=== PATIENT | female | born 1940 | race African-American/Black ===

== ENCOUNTER 2017-09-24 12:00 | Inpatient (IN) | payer MEDICARE ==
[2017-09-24] MEDS ORDERED: Magnesium Sulf 4 GM/100 ML IV* 4,000 MG/100 ML BAG IVPB ONE (18:21)
[2017-09-24] MEDS: NS 0.9% 1000 ML* 1,000 ML IV SCH (19:17)
[2017-09-24] MEDS: Enoxaparin(*) 40 MG/0.4 ML SYR SUBCUT SCH (19:20)
[2017-09-24 20:00] LABS: EGFR Non-African American 125.7 (>60)
[2017-09-24] MEDS: Ondansetron INJ* 2 MG/ML VIAL IV PRN (23:07)
[2017-09-25 07:06] LABS: EGFR Non-African American 132.1 (>60)
[2017-09-25] MEDS ORDERED: Lidocaine 2.5%/Prilocain 2.5%* 5 GM TUBE TOPICAL ONE (08:30)
[2017-09-25] MEDS ORDERED: Omeprazole CAP* 20 MG PO SCH (09:00)
[2017-09-25] MEDS: Potassium Chloride IV* 20 MEQ in NS 0.9% 100 ML* 100 ML IVPB SCH ×3 (10:42→16:15)
[2017-09-25 11:05] LABS: Hematocrit 27 % (35-47); Hemoglobin 9.2 g/dl (12.0-16.0); Mean Corpuscular HGB Conc 34 g/dl (31-36); Mean Corpuscular Hemoglobin 30 pg (27-31); Mean Corpuscular Volume 89 fL (80-97); Mean Platelet Volume 7 um3 (7.4-10.4); Platelet Count 220 10^3/ul (150-450); Red Blood Count 3.06 10^6/ul (4.0-5.4); Red Cell Distribution Width 17 % (10.5-15)
[2017-09-25 11:42] LABS: Monocytes % 28 % (0-13)
[2017-09-25] MEDS: NS 0.9% 1000 ML* 1,000 ML IV SCH (13:39)
[2017-09-25] MEDS: Ondansetron INJ* 2 MG/ML VIAL IV PRN (13:39)
[2017-09-25] MEDS ORDERED: PROCHLORPERAZINE INJ 5 MG/ML 2 ML VIAL IM PRN (19:54)
[2017-09-25] MEDS ORDERED: Pantoprazole IV* 80 MG in NS 0.9% 250 ML* 250 ML IVPB SCH (20:00)
[2017-09-25] MEDS ORDERED: KCL 20 MEQ/100 ML IVPREMIX* 20 MEQ/100 ML BAG IV SCH (20:00)
[2017-09-25] MEDS: Enoxaparin(*) 40 MG/0.4 ML SYR SUBCUT SCH (20:01)
[2017-09-25] MEDS ORDERED: PROCHLORPERAZINE INJ 5 MG/ML 2 ML VIAL IV PRN (20:20)
[2017-09-25 21:30] LABS: Hematocrit 26 % (35-47); Hemoglobin 8.9 g/dl (12.0-16.0)
[2017-09-25] MEDS ORDERED: Potassium Chloride IV* 60 MEQ in NS 0.9% 500 ML* 500 ML IVPB ONE (22:00)
[2017-09-25] MEDS: Latanoprost 0.005%* 2.5 ml BTL BOTH EYES SCH (22:50)
[2017-09-26] MEDS ORDERED: Morphine INJ* 2 MG/ML 1 ML CARPUJECT IV PRN
[2017-09-26] MEDS: Ondansetron INJ* 2 MG/ML VIAL IV PRN (00:35)
[2017-09-26] MEDS: NS 0.9% 1000 ML* 1,000 ML IV SCH (04:55)
[2017-09-26 05:55] LABS: Hematocrit 26 % (35-47); Hemoglobin 8.6 g/dl (12.0-16.0); Mean Corpuscular HGB Conc 33 g/dl (31-36); Mean Corpuscular Hemoglobin 30 pg (27-31); Mean Corpuscular Volume 90 fL (80-97); Mean Platelet Volume 7 um3 (7.4-10.4); Platelet Count 224 10^3/ul (150-450); Red Blood Count 2.86 10^6/ul (4.0-5.4); Red Cell Distribution Width 18 % (10.5-15); White Blood Count 2.2 10^3/ul (3.5-10.8)
[2017-09-26 06:23] LABS: ABS Basophils 0 10^3/ul (0-0.2); ABS Eosinophils 0 10^3/ul (0-0.6); ABS Lymphocytes 0.8 10^3/ul (1.0-4.8); ABS Monocytes 0.8 10^3/ul (0-0.8); ABS Neutrophils 0.5 10^3/ul (1.5-7.7); ABS Nucleated RBC 0 10^3/ul; Eosinophil % 0.2 % (0-6); Lymphocyte % 37.5 % (25-47); Nucleated Red Blood Cells % 1.4
[2017-09-26] MEDS: Pantoprazole IV* 80 MG in NS 0.9% 250 ML* 250 ML IVPB SCH (10:19)
--- NOTE | 2017-09-26 10:36 | PN ---
Progress Note - Progress Note Date of Service: 09/26/17 SOAP: Subjective: [] She is better this am, ate some breakfast. She had nausea and vomited all night. No fevers. Nurse said coffee ground vomit, she thinks it was grapefruit juice. She has epigastric pain, stable. Presented with nausea and vomiting. Has had for some time off and on. Before admission several days of vomiting and that is unusual. Has had consistent vomiting through admission. Not feeling much different now then before admission. Objective: Vital Signs Temp Pulse Resp BP Pulse Ox 98 F 72 16 118/58 99 09/26/17 09:40 09/26/17 09:40 09/26/17 09:40 09/26/17 09:40 09/26/17 09:40 HENNT - thin, no oral lesions, hyrated, conjunctiva pale CTA RRR S1S2 80s +BS, she has pain to palpation, no rebound, no masses Ext no C/C/E Neuro - AAOx3, conversational Laboratory Results - last 24 hr 09/25/17 09/25/17 09/25/17 10:41 16:35 21:10 WBC 2.0 L RBC 3.06 L Hgb 9.2 L 8.9 L Hct 27 L 26 L MCV 89 MCH 30 MCHC 34 RDW 17 H Plt Count 220 MPV 7 L Neut % (Auto) Not Reportable Lymph % (Auto) Not Reportable [place] % (Auto) Not Reportable Eos % (Auto) Not Reportable Baso % (Auto) Not Reportable Absolute Neuts (auto) Not Reportable Absolute Lymphs (auto) Not Reportable Absolute Monos (auto) Not Reportable Absolute Eos (auto) Not Reportable Absolute Basos (auto) Not Reportable Absolute Nucleated RBC Not Reportable Immature Gran % 3 Neutrophils % 2 L Band Neutrophils % 3 Lymphocytes % 66 H Monocytes % 28 H Eosinophils % 1 Basophils % 0 Nucleated RBC % Not Reportable Abs Neuts (Manual) 0 L Abs Monocytes (Manual) 0.6 Absolute Eos (Manual) 0 Abs Basophils (Manual) 0 Nucleated RBCs/100 WBC 0 Normal RBC Morphology Normal Hem Pathologist Commnt Sodium Potassium 2.9 L Chloride Carbon Dioxide Anion Gap BUN Creatinine Est GFR ( Amer) Est GFR (Non-Af Amer) BUN/Creatinine Ratio Glucose Calcium Magnesium 09/26/17 09/26/17 05:45 05:45 WBC 2.2 L RBC 2.86 L Hgb 8.6 L Hct 26 L MCV 90 MCH 30 MCHC 33 RDW 18 H Plt Count 224 MPV 7 L Neut % (Auto) 23.8 L Lymph % (Auto) 37.5 Edwards % (Auto) 38.2 H Eos % (Auto) 0.2 Baso % (Auto) 0.3 Absolute Neuts (auto) 0.5 L Absolute Lymphs (auto) 0.8 L Absolute Monos (auto) 0.8 Absolute Eos (auto) 0 Absolute Basos (auto) 0 Absolute Nucleated RBC 0 Immature Gran % Neutrophils % Band Neutrophils % Lymphocytes % Monocytes % Eosinophils % Basophils % Nucleated RBC % 1.4 Abs Neuts (Manual) Abs Monocytes (Manual) Absolute Eos (Manual) Abs Basophils (Manual) Nucleated RBCs/100 WBC Normal RBC Morphology Hem Pathologist Commnt Sodium 137 Potassium 3.5 Chloride 110 Carbon Dioxide 23 Anion Gap 4 BUN 6 Creatinine 0.44 L Est GFR ( Amer) 178.8 Est GFR (Non-Af Amer) 139.0 BUN/Creatinine Ratio 13.6 Glucose 70 Calcium 7.7 L Magnesium 1.7 L Assessment: []77 year old with metastatic esophageal cancer who has been responding to chemotherapy with FOLFOX-Herceptin. Presentation with refractory nausea, diarrhea, low electrolytes, neuropenia and now possible GIB. The differential of upper GIB is tear for recurrent vomiting, bleeding from tumor, ulcer, gastritis. Plan: []1. Possible GIB. Will continue IV protonix and consult GI for possible EGD 2. Anemia. Decreased Hgb and question of continued bleeding. Will Tx 1U PRBC and check iron, B12 3. FEN. Replete Mg today IV, add potassium to IVF 4. Nausea/Vomiting. Etiology unclear, will continue Zofran and Compazine. Add IV Ativan for breakthrough. 4. Esophageal cancer. May need alternative regimen in future.
[2017-09-26] MEDS ORDERED: LORazepam INJ* 2 MG/ML 1 ML VIAL IV PUSH PRN (10:42)
[2017-09-26] MEDS ORDERED: Magnesium Sulfate IV* 3 GM in NS 0.9% 100 ML* 100 ML IVPB ONE (10:44)
[2017-09-26 14:44] LABS: Urine Appearance Clear; Urine Blood Negative (Negative); Urine Color Yellow; Urine Ketones 1+ (Negative); Urine Protein 1+(30 mg/dL) (Negative); Urine Specific Gravity 1.015 (1.010-1.030); Urine Urobilinogen Negative (Negative)
[2017-09-26] MEDS ORDERED: NS 0.9% 100 ML* 100 ML ONE (17:02)
[2017-09-26] MEDS: Latanoprost 0.005%* 2.5 ml BTL BOTH EYES SCH (19:25)
--- NOTE | 2017-09-26 20:10 | CONS ---
CC: Gurjit Sol MD * GASTROENTEROLOGY CONSULTATION NOTE: DATE OF CONSULT: 09/26/17 REFERRING PHYSICIAN: Gurjit Sol MD HISTORY OF PRESENT ILLNESS: Thank you for asking me to see Mrs. Allen. 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 She is noted to have pulmonary nodules bilaterally. The patient has been undergoing chemotherapy infusion with 5-FU and FOLFOX. She is admitted last night due to refractory nausea and vomiting as well as neutropenia and fever. There is report that the patient was vomiting coffee ground; however, she clearly states this was not coffee ground. She had had grape juice and some sort of apple pie prior to the onset of her vomiting. Her hematocrit has been stable with admission hematocrit of 27, today 26. Her white blood count is 2.2 with 23.8% neutrophils. Platelet count is 224. The patient did have breakfast this morning and has no nausea or vomiting. She has been getting, however, epigastric pain and more episodes of vomiting, which she feels likely is due to the chemotherapy. The epigastric pain is somewhat new. She has been taking [place] at home to relieve the nausea. PAST MEDICAL HISTORY: Significant for foot surgery, carpal tunnel syndrome, GERD, and Suero's. CURRENT MEDICATIONS: 1. Morphine. 2. Zofran. 3. Pantoprazole drip. 4. Compazine. I would continue the pantoprazole pending endoscopy. ALLERGIES: To CODEINE, PENICILLIN, AMITRIPTYLINE, and BENADRYL. FAMILY HISTORY: There is no family history of colon or esophageal cancer. SOCIAL HISTORY: The patient lives alone. She is a former smoker quitting many years ago. No alcohol abuse. REVIEW OF SYSTEMS: A 10-point review of systems was performed and is otherwise negative. PHYSICAL EXAM: Mrs. Allen is a nontoxic appearing 77-year-old female. Temperature is 98, heart rate is 72, blood pressure 118/58. HEENT Exam: There is no scleral icterus. Heart is regular rate and rhythm. Lungs are clear. Abdomen is soft. There is some epigastric tenderness. Bowel sounds are present. There is no distention. Skin is warm and dry. Extremities without cyanosis, clubbing, or edema. DIAGNOSTIC STUDIES/LAB DATA: Pertinent laboratory studies: As described above. Sodium 137; potassium, admission 2.8, now 3.5 with correction. BUN of 6 , creatinine of 0.4, magnesium of 1.7. IMPRESSION: Mrs. Allen has a history of metastatic esophageal cancer undergoing chemotherapy. She has been having more frequent nausea and vomiting recently, was reported to have coffee ground emesis; however, she adamantly states this was not coffee ground. Her hematocrit is stable. Her white count is somewhat neutropenic. She has been afebrile since hospitalization. RECOMMENDATIONS: Given her more frequent nausea and vomiting and her epigastric discomfort, which is new and given the fact that she has been taking [place], which does contain aspirin, the patient has agreed to undergo upper endoscopy. She has had a full breakfast this morning, so endoscopy will be planned for tomorrow morning. She will be n.p.o. after midnight and have a regular diet today. [id number]/[facility] #: [id number] [facility]
[2017-09-27] MEDS: Pantoprazole IV* 80 MG in NS 0.9% 250 ML* 250 ML IVPB SCH ×3 (04:06→16:40)
[2017-09-27 07:23] LABS: Hematocrit 32 % (35-47); Hemoglobin 10.9 g/dl (12.0-16.0); Mean Corpuscular HGB Conc 35 g/dl (31-36); Mean Corpuscular Hemoglobin 31 pg (27-31); Mean Corpuscular Volume 88 fL (80-97); Mean Platelet Volume 7 um3 (7.4-10.4); Platelet Count 244 10^3/ul (150-450); Red Blood Count 3.58 10^6/ul (4.0-5.4); Red Cell Distribution Width 17 % (10.5-15); White Blood Count 3.2 10^3/ul (3.5-10.8)
[2017-09-27 07:35] LABS: EGFR Non-African American 132.1 (>60)
[2017-09-27 07:53] LABS: ABS Basophils 0 10^3/ul (0-0.2); ABS Eosinophils 0 10^3/ul (0-0.6); ABS Lymphocytes 1.3 10^3/ul (1.0-4.8); ABS Monocytes 0.9 10^3/ul (0-0.8); ABS Nucleated RBC 0 10^3/ul; Eosinophil % 0.2 % (0-6); Lymphocyte % 40.4 % (25-47); Nucleated Red Blood Cells % 0.3
[2017-09-27] MEDS: NS 0.9% w/ 40 Meq KCL 1000 ML* 1,000 ML IV SCH (09:25)
--- NOTE | 2017-09-27 10:29 | PN ---
Progress Note - Progress Note Date of Service: 09/27/17 SOAP: Subjective: []Better today. She did not vomit overnight. Abdominal pain seems better. Still having diarrhea, no change. Taking Mg at home, has not tolerated K but has new prescription at home. Heparin Sodium (Porcine) (Heparin Flush Port (Ivad)) 5 ml FLUSH DAILY PAUL PRN Reason: Protocol Last Admin: 09/27/17 07:13 Dose: Not Given Pantoprazole Sodium 80 mg/ (Sodium Chloride) 250 mls @ 25 mls/hr IVPB Q10H [facility] Last Admin: 09/27/17 05:52 Dose: Not Given Potassium Chloride/Sodium Chloride (Ns 0.9% W/ 40 Meq Kcl 1000 Ml*) 1,000 mls @ 75 mls/hr IV .PER RATE [facility] Last Admin: 09/27/17 09:25 Dose: 75 mls/hr Latanoprost (Xalatan 0.005%*) 1 drop BOTH EYES QPM [facility] Last Admin: 09/26/17 19:25 Dose: 1 drop Lorazepam (Ativan Inj*) 1 mg IV PUSH Q6H PRN PRN Reason: vomiting Morphine Sulfate (Morphine Inj (Syringe)*) 2 mg IV Q3H PRN PRN Reason: PAIN Last Admin: 09/26/17 00:36 Dose: 2 mg Ondansetron HCl (Zofran Inj*) 8 mg IV Q8H PRN PRN Reason: NAUSEA Last Admin: 09/26/17 00:35 Dose: 8 mg Prochlorperazine Edisylate (Compazine Inj*) 10 mg IV Q6H PRN PRN Reason: NAUSEA Last Admin: 09/25/17 21:15 Dose: 10 mg Objective: [] Vital Signs Temp Pulse Resp BP Pulse Ox 97.3 F 60 18 95/58 100 09/27/17 08:09 09/27/17 08:09 09/27/17 08:09 09/27/17 08:09 09/27/17 08:09 HENNT - thin, no oral lesions, hyrated, conjunctiva pale CTA RRR S1S2 80s +BS, she has pain to palpation, no rebound, no masses. No change Ext no C/C/E Neuro - AAOx3, conversational Hgb 10.5 Assessment: []77 year old with metastatic esophageal cancer who has been responding to chemotherapy with FOLFOX-Herceptin. Presentation with refractory nausea, diarrhea, low electrolytes, neuropenia and now possible GIB. Better today, most significant intervention has been adding PPI, likely gastritis. Plan: []1. Possible GIB. EGD today and will continue IV PPI today. Change to Protonix 40 bid on discharge. 2. Anemia. Stable today, follow. 3. FEN. Replete Mg today IV, potassium to IVF 40 meq/L 4. Nausea/Vomiting. Improved, will continue Zofran and Compazine. Add IV Ativan for breakthrough. 4. Esophageal cancer. May need alternative regimen in future. Oxaliplatin is contributing to electrolyte loss.
[2017-09-27] MEDS ORDERED: Magnesium Sulfate IV* 3 GM in NS 0.9% 100 ML* 100 ML IVPB ONE (10:30)
[2017-09-27] MEDS ORDERED: Midazolam* 1 MG/ML 10 ML VIAL (10 MG) ONE (18:22)
[2017-09-27] MEDS ORDERED: fentaNYL* 50 MCG/ML 2 ML VIAL (100 MCG VIAL) ONE (18:23)
--- NOTE | 2017-09-27 21:53 | PN ---
Progress Note - Progress Note Date of Service: 09/27/17 - Gastroenterology Note: Patient seen and examined. No new overnight issues. Tolerating diet after initiating PPI. No nausea/emesis. No melena/hematochezia. Vital Signs: Temp Pulse Resp BP Pulse Ox 97.4 F 61 20 107/63 99 09/27/17 15:20 09/27/17 21:14 09/27/17 21:14 09/27/17 21:14 09/27/17 21:14 GENERAL: NAD. AAOx3. HEENT: NC/AT. Anicteric sclera B/L. CV: RRR. PULM: CTAB. ABDOMEN: Soft, NT/ND. Laboratory Last Values WBC 3.2 10^3/ul (3.5-10.8) L 09/27/17 06:45 RBC 3.58 10^6/ul (4.0-5.4) L 09/27/17 06:45 Hgb 10.9 g/dl (12.0-16.0) L 09/27/17 06:45 Hct 32 % (35-47) L 09/27/17 06:45 MCV 88 fL (80-97) 09/27/17 06:45 MCH 31 pg (27-31) 09/27/17 06:45 MCHC 35 g/dl (31-36) 09/27/17 06:45 RDW 17 % (10.5-15) H 09/27/17 06:45 Plt Count 244 10^3/ul (150-450) 09/27/17 06:45 MPV 7 um3 (7.4-10.4) L 09/27/17 06:45 Neut % (Auto) 30.7 % (38-83) L 09/27/17 06:45 Lymph % (Auto) 40.4 % (25-47) 09/27/17 06:45 [place] % (Auto) 28.5 % (0-7) H 09/27/17 06:45 Eos % (Auto) 0.2 % (0-6) 09/27/17 06:45 Baso % (Auto) 0.2 % (0-2) 09/27/17 06:45 Absolute Neuts (auto) 1.0 10^3/ul (1.5-7.7) L 09/27/17 06:45 Absolute Lymphs (auto) 1.3 10^3/ul (1.0-4.8) 09/27/17 06:45 Absolute Monos (auto) 0.9 10^3/ul (0-0.8) H 09/27/17 06:45 Absolute Eos (auto) 0 10^3/ul (0-0.6) 09/27/17 06:45 Absolute Basos (auto) 0 10^3/ul (0-0.2) 09/27/17 06:45 Absolute Nucleated RBC 0 10^3/ul 09/27/17 06:45 Immature Gran % 3 % (0-9) 09/25/17 10:41 Neutrophils % 2 % (38-83) L 09/25/17 10:41 Band Neutrophils % 3 % (0-8) 09/25/17 10:41 Lymphocytes % 66 % (25-47) H 09/25/17 10:41 Monocytes % 28 % (0-13) H 09/25/17 10:41 Eosinophils % 1 % (0-6) 09/25/17 10:41 Basophils % 0 % (0-2) 09/25/17 10:41 Nucleated RBC % 0.3 09/27/17 06:45 Abs Neuts (Manual) 0 10^3/ul (1.5-7.7) L 09/25/17 10:41 Abs Monocytes (Manual) 0.6 10^3/ul (0-0.8) 09/25/17 10:41 Absolute Eos (Manual) 0 10^3/ul (0-0.6) 09/25/17 10:41 Abs Basophils (Manual) 0 10^3/ul (0-0.2) 09/25/17 10:41 Nucleated RBCs/100 WBC 0 (0-0) 09/25/17 10:41 Normal RBC Morphology Normal (Normal) 09/25/17 10:41 Hem Pathologist Commnt 09/25/17 10:41 Sodium 137 mmol/L (133-145) 09/27/17 06:45 Potassium 2.9 mmol/L (3.5-5.0) L 09/27/17 06:45 Chloride 110 mmol/L (101-111) 09/27/17 06:45 Carbon Dioxide 22 mmol/L (22-32) 09/27/17 06:45 Anion Gap 5 mmol/L (2-11) 09/27/17 06:45 BUN 4 mg/dL (6-24) L 09/27/17 06:45 Creatinine 0.46 mg/dL (0.51-0.95) L 09/27/17 06:45 Est GFR ( Amer) 169.9 (>60) 09/27/17 06:45 Est GFR (Non-Af Amer) 132.1 (>60) 09/27/17 06:45 BUN/Creatinine Ratio 8.7 (8-20) 09/27/17 06:45 Glucose 74 mg/dL (70-100) 09/27/17 06:45 Calcium 7.9 mg/dL (8.6-10.3) L 09/27/17 06:45 Magnesium 1.9 mg/dL (1.9-2.7) 09/27/17 06:45 Iron 27 ug/dL (50-212) L 09/26/17 13:14 TIBC 225 mcg/dL (250-450) L 09/26/17 13:14 % Saturation 12 % (15-55) L 09/26/17 13:14 Unsat Iron Binding 198 ug/dL 09/26/17 13:14 Ferritin 146.8 ng/mL (11-307) 09/26/17 13:14 Total Bilirubin 0.30 mg/dL (0.2-1.0) 09/27/17 06:45 AST 16 U/L (13-39) 09/27/17 06:45 ALT 9 U/L (7-52) 09/27/17 06:45 Alkaline Phosphatase 68 U/L (34-104) 09/27/17 06:45 Total Protein 4.1 g/dL (6.4-8.9) L 09/27/17 06:45 Albumin 2.3 g/dL (3.2-5.2) L 09/27/17 06:45 Globulin 1.8 g/dL (2-4) L 09/27/17 06:45 Albumin/Globulin Ratio 1.3 (1-3) 09/27/17 06:45 Vitamin B12 > 1450 pg/mL (180-914) H 09/26/17 13:14 Urine Color Yellow 09/26/17 14:30 Urine Appearance Clear 09/26/17 14:30 Urine pH 6.0 (5-9) 09/26/17 14:30 Ur Specific [place] 1.015 (1.010-1.030) 09/26/17 14:30 Urine Protein 1+(30 mg/dl) (Negative) H 09/26/17 14:30 Urine Ketones 1+ (Negative) H 09/26/17 14:30 Urine Blood Negative (Negative) 09/26/17 14:30 Urine Nitrate Negative (Negative) 09/26/17 14:30 Urine Bilirubin Negative (Negative) 09/26/17 14:30 Urine Urobilinogen Negative (Negative) 09/26/17 14:30 Ur Leukocyte Esterase Negative (Negative) 09/26/17 14:30 Urine WBC (Auto) Trace(0-5/hpf) (Absent) 09/26/17 14:30 Urine RBC (Auto) Trace(0-2/hpf) (Absent) 09/26/17 14:30 Ur Squamous Epith Cells Present (Absent) H 09/26/17 14:30 Urine Bacteria Absent (Absent) 09/26/17 14:30 Urine Glucose Negative (Negative) 09/26/17 14:30 Blood Type O Positive 09/26/17 05:45 Antibody Screen Negative 09/26/17 05:45 Crossmatch See Detail 09/26/17 05:45 A/p 77 yo with esophageal cancer and metastasis on chemotherapy who presented to [facility] with nausea/emesis. She was noted to be anemic. No hx of GI bleeding. She does have a hx of NSAID use. GI was consulted for further evaluation. Her symptoms have improved since initiation of PPI therapy in the hospital. 1. Nausea/emesis - resolved. ~EGD today with multiple small clean-based gastric, clean-based duodenal ulcers and gastroduodenitis. Small circumferential esophageal tumor was seen and possibly has shrunken from initial diagnosis. Distal and mid esophagitis was seen as well. Biopsies were take for clotest to r/o H.pylori and r/o opportunistic infections in esophagus. ~PPI BID for 6 weeks, then decrease to once daily. ~Await clotest and bx. ~Avoid NSAIDs. ~Follow-up in office in 2 weeks. ~Resume regular diet. 2. Esophageal cancer with mets on chemotherapy D/w Dr. Watters over the phone. Please call us with any further questions or concerns. Emerald Bañuelos D.O.
[2017-09-27] MEDS: Latanoprost 0.005%* 2.5 ml BTL BOTH EYES SCH (23:24)
[2017-09-28] MEDS: NS 0.9% w/ 40 Meq KCL 1000 ML* 1,000 ML IV SCH (02:28)
[2017-09-28 06:27] LABS: Hematocrit 30 % (35-47); Hemoglobin 10.3 g/dl (12.0-16.0); Mean Corpuscular HGB Conc 34 g/dl (31-36); Mean Corpuscular Hemoglobin 30 pg (27-31); Mean Corpuscular Volume 89 fL (80-97); Mean Platelet Volume 7 um3 (7.4-10.4); Platelet Count 260 10^3/ul (150-450); Red Blood Count 3.42 10^6/ul (4.0-5.4); Red Cell Distribution Width 17 % (10.5-15); White Blood Count 2.9 10^3/ul (3.5-10.8)
[2017-09-28] MEDS: Pantoprazole IV* 80 MG in NS 0.9% 250 ML* 250 ML IVPB SCH (06:29)
[2017-09-28 07:26] LABS: ABS Basophils 0 10^3/ul (0-0.2); ABS Eosinophils 0 10^3/ul (0-0.6); ABS Lymphocytes 0.9 10^3/ul (1.0-4.8); ABS Monocytes 0.9 10^3/ul (0-0.8); ABS Neutrophils 1.1 10^3/ul (1.5-7.7); ABS Nucleated RBC 0 10^3/ul; Eosinophil % 0.1 % (0-6); Nucleated Red Blood Cells % 0.4
--- NOTE | 2017-09-28 08:17 | PN ---
Progress Note - Progress Note Date of Service: 09/28/17 SOAP: Subjective: []Doing well. Hungry, no diarrhea. Wants breakfast and wants to go home. No pain , no fevers. EGD - Multiple small ulcers, stomach and small intestine. H pylori pending. Esophageal mass improved. Heparin Sodium (Porcine) (Heparin Flush Port (Ivad)) 5 ml FLUSH DAILY PAUL PRN Reason: Protocol Last Admin: 09/27/17 07:13 Dose: Not Given Pantoprazole Sodium 80 mg/ (Sodium Chloride) 250 mls @ 25 mls/hr IVPB Q10H [facility] Last Admin: 09/28/17 06:29 Dose: 25 mls/hr Potassium Chloride/Sodium Chloride (Ns 0.9% W/ 40 Meq Kcl 1000 Ml*) 1,000 mls @ 75 mls/hr IV .PER RATE [facility] Last Admin: 09/28/17 02:28 Dose: 75 mls/hr Latanoprost (Xalatan 0.005%*) 1 drop BOTH EYES QPM [facility] Last Admin: 09/27/17 23:24 Dose: 1 drop Lorazepam (Ativan Inj*) 1 mg IV PUSH Q6H PRN PRN Reason: vomiting Morphine Sulfate (Morphine Inj (Syringe)*) 2 mg IV Q3H PRN PRN Reason: PAIN Last Admin: 09/26/17 00:36 Dose: 2 mg Ondansetron HCl (Zofran Inj*) 8 mg IV Q8H PRN PRN Reason: NAUSEA Last Admin: 09/26/17 00:35 Dose: 8 mg Prochlorperazine Edisylate (Compazine Inj*) 10 mg IV Q6H PRN PRN Reason: NAUSEA Last Admin: 09/25/17 21:15 Dose: 10 mg Objective: [] Vital Signs Temp Pulse Resp BP Pulse Ox 98.3 F 81 16 116/72 99 09/28/17 06:28 09/28/17 06:28 09/28/17 06:28 09/28/17 06:28 09/28/17 06:28 HENNT - thin, no oral lesions, hyrated. CTA RRR S1S2 80s +BS, she has pain to palpation, no rebound, no masses. No change Ext no C/C/E Neuro - AAOx3, conversational Hgb 10.3 Assessment: []77 year old with metastatic esophageal cancer who has been responding to chemotherapy with FOLFOX-Herceptin. Better today after EGD with GIB Plan: []1. GIB. Will discharge on BID PPI. Follow CBC next week and call for nausea. 2. FEN. Mag and K at home, re-check next week. 3. Pancytopenia. Improved and expect further increase in WBC. 4. Esophageal cancer. May need alternative regimen in future. Oxaliplatin is contributing to electrolyte loss. Follow up Dr. Sol next week
[2017-09-28 10:02] VITALS: BP 94/56
--- NOTE | 2017-09-28 15:53 | PRO ---
CC: Dr. Alberto Watters; Dr. Brice Guallpa * GASTROENTEROLOGY OPERATIVE REPORT: DATE OF PROCEDURE: 09/26/17 - ROOM #422 OPERATIVE PROCEDURE: Esophagogastroduodenoscopy to the second portion of duodenum. SURGEON: Emerald Bañuelos MD ANESTHESIA: 1. Midazolam 4 mg IV. 2. Fentanyl 75 mcg IV. HISTORY OF PRESENT ILLNESS: Alina is a very pleasant 77-year-old female with esophageal cancer with mets on chemotherapy, who presented to [facility] with persistent nausea and vomiting that has since resolved and mild anemia. She denies any active gastrointestinal bleeding. She is here for a diagnostic endoscopy. PREOPERATIVE DIAGNOSES: 1. Esophageal carcinoma with mets. 2. Persistent nausea and vomiting, which has resolved after initiation of PPI therapy. 3. Anemia. POSTOPERATIVE DIAGNOSES: 1. Duodenitis of the bulb second and third portion with biopsies. 2. Multiple clean based duodenal and gastric ulcers. 3. Mild antral gastritis with CLOtest to rule out Helicobacter pylori. 4. Small circumferential distal esophageal tumor that is very mildly obstructive. 5. Mid and distal esophagitis with biopsies to rule out opportunistic infections given neutropenia and ongoing chemotherapy. RECOMMENDATIONS: 1. Recommend pantoprazole therapy 40 mg twice daily for 6 weeks, then may decrease to once daily. 2. Recommend no NSAID use. 3. We will follow up on CLOtest to rule out H. pylori. 4. We will follow up with biopsy results. 5. The patient may resume a regular diet. 6. Findings and recommendations were discussed with Dr. Alberto Watters over the phone. 7. The patient should follow up in our office in 2 weeks to follow up with biopsy results and determine further plan of care as needed. DESCRIPTION OF PROCEDURE: Esophagogastroduodenoscopy was explained in detail to the patient. The risks, benefits, complications, alternatives, and possibilities of missed lesions were explained and understood. Complications included, but were not limited to reaction to anesthesia, aspiration, increased risk of bleeding, and perforation. All questions were answered. The patient demonstrated understanding of the conversation and informed consent was obtained. Next, the patient was brought to the endoscopy suite, placed in the left lateral recumbent position, where blood pressure, cardiac, and oxygen monitors were applied. The patient was found to be a fit candidate for moderate anesthesia. After adequate IV sedation was achieved, bite block was placed. Next, a standard adult Olympus endoscope was inserted per os under direct visualization. The first and second portion of the duodenum, there were multiple clean-based ulcers seen in the bulb of the duodenum. Intervention was not performed as these were clean based and no active bleeding was seen. There was mild erythema in the bulb and the first and second portions. Cold forceps biopsies were obtained from this area. Further withdrawal of the endoscope into the gastric lumen revealed a few small clean based gastric ulcers in the antrum, body and fundus. On retroflexion, the patient had a slightly loose gastric cardia sling. Further withdrawal of the endoscope into the distal esophagus revealed a very mildly obstructive esophageal tumor. There was esophagitis present in the distal and mid esophagus. Cold forceps biopsies were obtained to rule out opportunistic infection. The proximal esophagus was normal appearing. Air was then removed from the patient. Endoscope was removed from the patient. The patient tolerated the procedure well. There were no immediate complications. After a period of observation, the patient was discharged home with a city driver in stable condition. Thank you, Dr. Alberto Watters and Dr. Brice Guallpa, for allowing us to participate in the care of your patient. If you should have any further questions or concerns, please do not hesitate to contact us. [id number]/RY #: [id number] EDMUNDO
--- NOTE | 2017-09-29 02:01 | DS ---
DISCHARGE SUMMARY: DATE OF ADMISSION: 09/25/17 DATE OF DISCHARGE: 09/28/17 DISCHARGE DIAGNOSES: 1. Gastric ulcers. 2. Duodenal ulcers. 3. Hypokalemia and hypomagnesemia. 4. Pancytopenia from chemotherapy. HOSPITAL COURSE: Please see history and physical from 09/25/17 for details of presentation. She is a 77-year-old female with metastatic esophageal cancer. She has been treated with FOLFOX and Herceptin with a good response. She has had intermittent nausea and then presented with several days of escalating nausea including vomiting all night long. She also has had progressive epigastric pain. On presentation, she had a white count of 2.0 with absolute neutrophils of 0, hemoglobin of 9.2 and platelet count of 220,000. She also had a potassium of 2.7, creatinine of 0.46, and magnesium of 2.4 on admission. Regarding her electrolytes, she was hydrated and given IV potassium and IV magnesium. She had IV magnesium 3 g daily for 2 days with the magnesium 1.9. She had IV potassium initially as run with the normal saline. Her potassium today is 3.2. GI bleed. She had coffee-ground emesis on day 2 of her admission after vomiting all night long. She was transfused 1 unit packed red blood cells when her hemoglobin went down to 8.6 given the question of continued bleeding. GI was consulted and she had an endoscopy yesterday. She was found to have multiple gastric and duodenal ulcers. They were small, although likely to be source of her bleeding. Biopsies were taken. H. pylori was sent. Symptomatically, she improved significantly on IV Protonix. Will be discharged on BID PPI. Pancytopenia. During the hospitalization, her white count went to 2.9 with percent neutrophils going to 38 and absolute neutrophil count of 1100, platelets stable, hemoglobin is 10.3 on discharge and stable. PLAN: Plan will be to discharge home on omeprazole 20 mg p.o. b.i.d. and will follow up with Dr. Sol next week. She is going to take magnesium 400 twice a day and potassium 20 mEq daily at home. We will recheck potassium and magnesium on followup in 4 to 7 days. Blood counts are improved, but she should call with any recurrent abdominal pain or vomiting. DISCHARGE MEDICATIONS: 1. Tessalon capsules 100 mg t.i.d. p.r.n. for cough. 2. Fioricet 1 tab q.6 hours p.r.n. for headaches. 3. Vitamin D 1000 a day. 4. Vitamin B12, 500 a day. 5. Magnesium oxide 400 mg b.i.d. 6. Omeprazole 20 mg p.o. b.i.d. 7. Micro-K 10 mEq 2 tabs daily. FOLLOWUP: Follow up with Dr. Sol early next week. [id number]/[facility] #: [id number] [facility]
== END 2017-09-28 12:00 | disposition home or self-care (01) | DRG 377 ==
LOC: MED 12:00 → OBSVTOIN 09-26 12:00
PROVIDERS: ADMIT Internal Medicine Hematology & Oncology; ATTEND Internal Medicine Hematology & Oncology
PROC: 30233N1 Transfusion of Nonautologous Red Blood Cells into Peripheral Vein, Percutaneous Approach (ICD-10-PCS; principal; 2017-09-26)
PROC: 0DB98ZX Excision of Duodenum, Via Natural or Artificial Opening Endoscopic, Diagnostic (ICD-10-PCS; 2017-09-27)
PROC: 0DB68ZX Excision of Stomach, Via Natural or Artificial Opening Endoscopic, Diagnostic (ICD-10-PCS; 2017-09-27)
DX: K26.4 Chronic or unspecified duodenal ulcer with hemorrhage (principal); D61.810 Antineoplastic chemotherapy induced pancytopenia; C78.00 Secondary malignant neoplasm of unspecified lung; C15.9 Malignant neoplasm of esophagus, unspecified; D64.9 Anemia, unspecified; E83.42 Hypomagnesemia; K20.9 Esophagitis, unspecified; E87.6 Hypokalemia; K25.4 Chronic or unspecified gastric ulcer with hemorrhage; K29.80 Duodenitis without bleeding; K29.70 Gastritis, unspecified, without bleeding; T45.1X5A Adverse effect of antineoplastic and immunosuppressive drugs, initial encounter; K22.70 Barrett's esophagus without dysplasia; K44.9 Diaphragmatic hernia without obstruction or gangrene; K21.9 Gastro-esophageal reflux disease without esophagitis; R91.8 Other nonspecific abnormal finding of lung field; Z88.8 Allergy status to other drugs, medicaments and biological substances; Z88.0 Allergy status to penicillin; Z87.891 Personal history of nicotine dependence; Z88.5 Allergy status to narcotic agent; Y92.9 Unspecified place or not applicable
CPT/HCPCS: 36415; 36591; 80048; 80053; 81003; 81015; 82272; 82607; 82728; 83540; 83550; 83735; 84132; 85014; 85018; 85025; 85060; 86850; 86900; 86901; 86922; 87040; 87077; 87493; 96360; 99156; 99220; 99232; 99239; A9270-GY; G0378; J0640; J0780; J1100; J1642; J1650; J2250; J2270; J2405; J2469; J3010; J3475; J3480; J9190; J9263; J9355; P9040